=== PATIENT | female | born 1975 | race Two or more races ===

== ENCOUNTER 2024-08-11 11:02 | Inpatient (IN) | payer MEDICAID, OTHER ==
[~2024-08-11] VITALS: Ht 165.1 cm; Wt 82.3 kg
[~2024-08-11 11:02] MED LIST: GABA-1181 PO; GABA-1201 PO; RISP0.5T80 PO; VENL-67 PO
[2024-08-11 11:38] LABS: BASOPHILS % (AUTO) 0.4 % (0.0-2.0); EOSINOPHILS % (AUTO) 2.4 % (1.0-6.0); HEMATOCRIT 37.3 % (36-46); HEMOGLOBIN 12.1 g/dL (12.0-16.0); LYMPHOCYTES # (AUTO) 1.3 K/uL (1.0-4.8); LYMPHOCYTES % (AUTO) 22.6 % (22.0-44.0); MEAN CORPUSCULAR HEMOGLOBIN 28.8 pg (26.0-34.0); MEAN CORPUSCULAR HGB CONC 32.4 G/dL (31.0-37.0); MEAN CORPUSCULAR VOLUME 89 fL (80-100); MONOCYTES # (AUTO) 0.5 K/uL (0.1-1.0); MONOCYTES % (AUTO) 9.1 % (2.0-9.0); NEUTROPHILS # (AUTO) 3.7 K/uL (1.8-7.7); NEUTROPHILS % (AUTO) 65.5 % (40.0-70.0); PLATELET COUNT (AUTO) 321 K/uL (150-450); RED CELL DISTRIBUTION WIDTH 14.4 % (11.5-14.5); WHITE BLOOD COUNT (AUTO) 5.6 K/uL (4.5-11.0)
[2024-08-11] MEDS: SODIUM CHLORIDE 0.9% 1,000 ML IV ONE ×2 (11:53→12:49)
[2024-08-11 11:54] LABS: PROTHROMBIN TIME 10.3 SEC (9.4-11.6)
[2024-08-11 11:58] LABS: TROPONIN I-HIGH SENSITIVITY 24 ng/L (<51)
[2024-08-11 12:03] LABS: ALANINE AMINOTRANSFERASE 17 U/L (12-78); ALBUMIN 2.8 g/dL (3.4-5.0); ALKALINE PHOSPHATASE 64 U/L (46-116); ASPARTATE AMINOTRANSFERASE 13 U/L (15-37); BILIRUBIN,TOTAL 0.4 mg/dL (0.1-1.0); CALCIUM, TOTAL 8.3 mg/dL (8.8-10.5); CARBON DIOXIDE 26 mmol/L (22-29); CREATININE 0.86 mg/dL (0.60-1.30); GLOMERULAR FILTR. RATE CALC > 60 mL/min (>60); GLUCOSE,RANDOM 129 mg/dL (70-110); HCG,QUANTITATIVE < 1 mIU/mL (0-6); TOTAL PROTEIN, SERUM 6.5 g/dL (6.4-8.2); UREA NITROGEN, BLOOD 17 mg/dL (7-18)
[2024-08-11 12:07] LABS: ANION GAP 10 mmol/L (8-16); CHLORIDE 105 mmol/L (98-107); POTASSIUM 4.1 mmol/L (3.5-5.1); SODIUM SERUM 141 mmol/L (136-145)
[2024-08-11] MEDS ORDERED: ACETAMINOPHEN 325 MG TABLET PO PRN (12:30)
[2024-08-11] MEDS ORDERED: ATORVASTATIN CALCIUM 40 MG TABLET PO ONE (12:30)
[2024-08-11] MEDS ORDERED: ONDANSETRON HCL 4 MG/2 ML VIAL IVP PRN (12:30)
[2024-08-11] MEDS ORDERED: MAGNESIUM HYDROXIDE SUSPENSION 30 ML UDCUP PO PRN (12:30)
[2024-08-11] MEDS: ASPIRIN 325 MG TABLET PO ONE (12:48)
[2024-08-11] MEDS: CLOPIDOGREL BISULFATE 75 MG TABLET PO ONE (12:49)
[2024-08-11] MEDS: ATORVASTATIN CALCIUM 40 MG TABLET PO SCH (12:49)
[2024-08-11 15:15] LABS: APPEARANCE,URINE CLEAR (CLEAR); BILIRUBIN,URINE NEGATIVE (NEGATIVE); COLOR,URINE LIGHT YELLOW (YELLOW); GLUCOSE, URINE (UA) NEGATIVE (NEGATIVE); KETONES,URINE NEGATIVE (NEGATIVE); LEUKOCYTE ESTERASE ,URINE NEGATIVE (NEGATIVE); NITRATE,URINE NEGATIVE (NEGATIVE); OCCULT BLOOD,URINE NEGATIVE (NEGATIVE); PROTEIN,URINE TRACE mg/dL (NEGATIVE); UROBILINOGEN,URINE <=1.0 mg/dL (<=1.0)
[2024-08-11 15:31] LABS: ALCOHOL, URINE DRUG SCREEN NEGATIVE (NEGATIVE); AMPHET/METH SCREEN,URINE NEGATIVE (NEGATIVE); BARBITURATE SCREEN, URINE NEGATIVE (NEGATIVE); BENZODIAZEPINES SCREEN,URINE NEGATIVE (NEGATIVE); CANNABINOID SCREEN,URINE POSITIVE (NEGATIVE); COCAINE SCREEN,URINE NEGATIVE (NEGATIVE); METHADONE SCREEN, URINE NEGATIVE (NEGATIVE); OPIATE SCREEN,URINE NEGATIVE (NEGATIVE); PHENCYCLIDINE SCREEN,URINE NEGATIVE (NEGATIVE)
[2024-08-11 15:36] LABS: BACTERIA,URINE Few /HPF (None Seen); MUCUS,URINE Rare LPF (None Seen); RBC,URINE 0-2 /HPF (0-2); SQUAMOUS EPITHELIAL CELL,UR Few /LPF (None Seen); WBC,URINE None Seen /HPF (0-5)
[2024-08-11] MEDS: HEPARIN SODIUM,PORCINE 5,000 UNITS/ML VIAL SQ SCH (16:12)
[2024-08-11 17:43] VITALS: BP 156/98; PULSE 48; RESP 20; TEMP 97.7; O2SAT 99
[2024-08-11 18:05] LABS: TROPONIN I-HIGH SENSITIVITY 24 ng/L (<51)
[2024-08-11] MEDS: DOCUSATE SODIUM 100 MG CAPSULE PO SCH (21:00)
[2024-08-11 21:08] VITALS: BP 106/72; PULSE 54; RESP 17; TEMP 97.6; O2SAT 95
[2024-08-12 00:01] LABS: TROPONIN I-HIGH SENSITIVITY 23 ng/L (<51)
[2024-08-12 00:48] VITALS: BP 140/73; PULSE 55; RESP 17; TEMP 97.2; O2SAT 97
[2024-08-12] MEDS: MELATONIN 5 MG TABLET PO PRN (01:06)
[2024-08-12 08:00] VITALS: BP 129/78; PULSE 62; RESP 18; TEMP 98.2; O2SAT 95
[2024-08-12] MEDS: PANTOPRAZOLE SODIUM 40 MG/VIAL IVP SCH (08:38)
[2024-08-12] MEDS: ASPIRIN 81 MG CHEWABLE TABLET PO SCH (08:38)
[2024-08-12] MEDS ORDERED: ASPI-1444 PO (10:47)
[2024-08-12] MEDS ORDERED: ATOR20TA PO (10:48)
[2024-08-12 12:50] VITALS: PULSE 58
[2024-08-12 14:23] VITALS: BP 151/96; PULSE 82; RESP 18; TEMP 97.7; O2SAT 99
[2024-08-12 15:13] VITALS: BP 137/92; PULSE 62; RESP 18; TEMP 98.4; O2SAT 97
[2024-08-12 16:21] VITALS: PULSE 56
== END 2024-08-12 18:31 | disposition home or self-care (01) | DRG 47 ==
LOC: EMS 11:02 → EDH 12:37 → 5S 16:35
PROVIDERS: ADMIT Internal Medicine; ATTEND Internal Medicine
DX: G45.9 Transient cerebral ischemic attack, unspecified (principal); E88.09 Other disorders of plasma-protein metabolism, not elsewhere classified; F32.A Depression, unspecified; I10 Essential (primary) hypertension; F41.9 Anxiety disorder, unspecified; Z88.2 Allergy status to sulfonamides; Z87.891 Personal history of nicotine dependence
CPT/HCPCS: 70496; 70498; 70551; 71045; 80053; 80307; 81001; 82948; 84484; 84702; 85025; 85610; 85730; 93005; 93306; 97163; 97165; 97535; 99285; C9113; J1644; J7030; 36415-L1; 36415-TC; 70450; 70450-TC